=== PATIENT | female | born 1960 | race Two or more races ===

== ENCOUNTER 2025-07-30 18:00 | Emergency (ER) | payer SELFPAY ==
[2025-07-30 18:12] VITALS: BP 215/125
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
[2025-07-30 21:20] VITALS: BP 187/95
== END 2025-07-30 21:41 | disposition home or self-care (01) ==
LOC: EMR 18:00
PROVIDERS: EMERGENCY PHYSICIAN Emergency Medicine
DX: S50.312A Abrasion of left elbow, initial encounter (principal); R51.9 Headache, unspecified; M25.551 Pain in right hip; M54.9 Dorsalgia, unspecified; M25.561 Pain in right knee; V03.00XA Pedestrian on foot injured in collision with car, pick-up truck or van in nontraffic accident, initial encounter; Z90.49 Acquired absence of other specified parts of digestive tract
CPT/HCPCS: 99284; 70450; 72100; 72125; 73502; 73562